=== PATIENT | female | born 1955 | race Caucasian/White ===

== ENCOUNTER → 2020-05-15 14:14 | Outpatient (CLI) | payer MEDICARE, BC, SELFPAY ==
--- NOTE | 2020-05-15 | DI.MRI.S_ITS ---
PROCEDURE: MR SHOULDER RT WO CON INDICATIONS: Impingement syndrome of right shoulder TECHNIQUE: Noncontrast oblique coronal T2 fast spin echo with fat saturation, oblique sagittal T1 spin echo and T2 fast spin echo with fat saturation, axial T1 spin echo and T2 fast spin echo with fat saturation through the shoulder. COMPARISON: None. FINDINGS: Image quality: Excellent. Rotator cuff: There is moderate grade bursal surface tearing of the mid supraspinatus tendon at the humeral insertion site, spanning roughly 8 mm anteroposterior. Low-grade partial-thickness intrasubstance tearing of the posterior supraspinatus tendon at the humeral insertion site. Moderate T2 signal elevation throughout the supraspinatus tendon at the humeral insertion site, indicating tendinopathy, without tear. There is a 9 mm ovoid well-circumscribed focus of high T2 signal intensity within the anterior infraspinatus tendon at the musculotendinous junction, which is indeterminate. Bones and bursae: No bone marrow contusions or fractures. There is moderate acromioclavicular joint degeneration. The acromion demonstrates conventional anatomy, without an os acromiale. A small amount of subacromial-subdeltoid or subcoracoid bursal fluid is present. Capsule and soft tissues: There is diffuse degenerative glenoid labral tearing. There is a moderate glenohumeral joint effusion. The long head of the biceps tendon demonstrates normal location and morphology. The rotator interval appears normal, without fibrosis. The coracohumeral ligament is normal in thickness. IMPRESSION: 1. Partial-thickness tearing of the supraspinatus tendon as above. No focal with rotator cuff tear. 2. Indeterminate region of high T2 signal intensity within the anterior infraspinatus tendon as described above. This finding may represent hydrated calcium and calcific tendinitis. Initial further assessment with plain films of the shoulder are recommended. 3. Diffuse degenerative glenoid labral tearing. 4. Acromioclavicular joint osteoarthritis. 5. Subacromial bursitis. Dictated by: Sherri Kingston M.D. on 05/15/2020 at 15:42 Approved by: Sherri Kingston M.D. on 05/15/2020 at 15:46
== END ==
PROVIDERS: PCP Family Medicine; Referring Provider Family Medicine; Visit Provider Orthopaedic Surgery
DX: M75.41 Impingement syndrome of right shoulder (principal); M75.111 Incomplete rotator cuff tear or rupture of right shoulder, not specified as traumatic; M19.011 Primary osteoarthritis, right shoulder; M75.51 Bursitis of right shoulder; S43.491A Other sprain of right shoulder joint, initial encounter
CPT/HCPCS: 73221

== ENCOUNTER → 2023-02-02 08:54 | Outpatient (CLI) | payer MEDICARE, BC, SELFPAY ==
[2023-02-02 09:49] LABS: Add Manual Diff / Slide Review NO; Basophils Absolute Auto 0 /uL (0-100); Eosinophils Absolute Auto 100 /uL (0-450); Eosinophils Percent Auto 1.9 % (2-4); Hematocrit 43.4 % (36-46); Lymphocytes Absolute Auto 1300 /uL (1100-4500); Lymphocytes Percent Auto 32.8 % (25-40); Mean Corpuscular HGB Conc 34.5 % (30-36); Mean Corpuscular Hemoglobin 31.3 PG (26-34); Mean Corpuscular Volume 90.8 fL (80-100); Monocytes Absolute Auto 300 /uL (0-900); Monocytes Percent Auto 7.3 % (3-14); Neutrophils Absolute Auto 2300 /uL (1500-7000); Platelet Count 275 X10^3/uL (150-400); Red Blood Cell Count 4.78 X10^6/uL (4.0-5.2); Red Cell Distribution Width 12.6 % (11.6-14.8)
[2023-02-02 10:09] LABS: Alanine Aminotransferase 20 IU/L (<35); Albumin 4.5 g/dL (3.5-5.0); Albumin Globulin Ratio 1.6 (1.0-2.8); Alkaline Phosphatase 70 U/L (38-126); Aspartate Aminotransferase 32 IU/L (14-36); BUN Creatinine Ratio 19.7 (6-22); Blood Urea Nitrogen 12 mg/dL (7-17); Carbon Dioxide 27 mmol/L (22-32); Chloride 98 mmol/L (98-107); Cholesterol 199 mg/dL (140-199); Estimated Glomerular Filt Rate > 60 mL/min (>60); Globulin 2.8 g/dL (1.7-4.1); Glucose 88 mg/dL (80-110); HDL Cholesterol 82 mg/dL (40-60); HEMOLYSIS < 15 (0-50); LDL Cholesterol Calculated 106 mg/dL (<100); Sodium 133 mmol/L (137-145); Total Protein 7.3 g/dL (6.3-8.2); Triglycerides 54 mg/dL (35-150)
[2023-02-02 10:40] LABS: Thyroid Stimulating Hormone 4.61 uIU/mL (0.47-4.68)
== END ==
PROVIDERS: PCP Family Medicine; Referring Provider Family Medicine; Visit Provider Family Medicine
DX: I10 Essential (primary) hypertension (principal); E03.9 Hypothyroidism, unspecified; Z13.6 Encounter for screening for cardiovascular disorders
CPT/HCPCS: 36415; 80053; 80061; 84443; 85025

== ENCOUNTER → 2023-03-04 11:01 | Outpatient (CLI) | payer MEDICARE, BC, SELFPAY ==
[2023-03-04 20:53] LABS: BUN Creatinine Ratio 28.8 (6-22); Blood Urea Nitrogen 19 mg/dL (7-17); Calcium 9.3 mg/dL (8.4-10.2); Carbon Dioxide 29 mmol/L (22-32); Chloride 96 mmol/L (98-107); Estimated Glomerular Filt Rate > 60 mL/min (>60); Glucose 84 mg/dL (80-110); HEMOLYSIS < 15 (0-50); Potassium 4.8 mmol/L (3.4-5.1); Sodium 132 mmol/L (137-145)
[2023-03-04 21:24] LABS: Thyroid Stimulating Hormone 1.83 uIU/mL (0.47-4.68)
== END ==
PROVIDERS: PCP Family Medicine; Visit Provider Family Medicine
DX: I10 Essential (primary) hypertension (principal); E87.1 Hypo-osmolality and hyponatremia; E03.9 Hypothyroidism, unspecified
CPT/HCPCS: 80048; 84443

== ENCOUNTER 2023-04-20 10:22 | Day surgery (SDC) | payer MEDICARE, BC, SELFPAY ==
[2023-04-20] VITALS (7 sets, daily range): BP systolic 93–133; BP diastolic 53–75; PULSE 50–61; RESP 13–24; TEMP 36.1–36.8; O2SAT 96–99; BMI 19.9
--- NOTE | 2023-04-20 | PATH_ITS ---
[facility] Accession Number: [id number] No. of containers..01 Tissue . 01 Material submitted: . colon - RANDOM COLON BIOPSY . 01 Diagnosis: Random Colon, Biopsy: Fragment of colonic mucosa with no significant diagnostic alterations. Additional fragment of colonic mucosa with histologic features consistent with hyperplastic polyp. No dysplasia or malignancy identified. [facility] 04/26/2023 1109 Local . 01 Electronically signed: . Amelia Spencer MD, Pathologist NPI- [id number] . 01 Gross description: . RANDOM COLON BIOPSY: Received in formalin are 2 fragment(s) of zaragoza, soft tissue measuring 0.3 x 0.3 x 0.3 cm to 0.4 x 0.4 x 0.3 cm submitted entirely in 1 cassette(s) /[facility]ASH 04/21/2023 2316 Local . 01 Pathologist provided ICD-10: D12.6 . 01 CPT . 095848 Specimen Comment: A courtesy copy of this report has been sent to [phone] Performed at: 01 [facility] [address] [place] [address], [place], [place] [id number] MD Vinicio Billingsley MD Phone: [phone]
[2023-04-20] MEDS: LACTATED RINGERS 1,000 ML 200 ML IV (11:05)
--- NOTE | 2023-04-20 11:09 | P.HP_ITS ---
History of Present Illness History of Present Illness Date Patient Seen: 04/20/23 Time Patient Seen: 11:09 Chief complaint: [facility] [place]ative: 67-year-old woman with chronic diarrhea here for diagnostic colonoscopy. no abdominal pain nausea vomiting blood per rectum. No personal or family history of intestinal malignancy. Previously normal colonoscopy approximately 3 years ago at outside hospital. [facility] Medical History Abnormal Pap smear of cervix (~1975) Ankle pain (~2005) Fibroids Hepatitis A (~1982) Hypertension (~2020) Hypothyroidism (~1999) Infection, Shigella (~1982) Osteoarthritis (~2015) Osteopenia (~2001) Rosacea (~2007) Surgical History Anesthesia History of breast biopsy History of cervical biopsy Intestinal adhesions (~1966) Ruptured appendix (~1963) Family History Mother Dementia Hypertension Hyperlipidemia Father History of heart disease Hyperlipidemia Hypertension Stroke Diabetes mellitus Brother History of heart disease Hyperlipidemia Hypertension Diabetes mellitus History of being obese Sister Hyperlipidemia Hypertension Sister Hyperlipidemia Hypertension History of hip surgery Grandfather Stroke History of heart disease Grandmother Stroke Grandfather Diabetes mellitus History of heart disease Hyperlipidemia Hypertension Grandmother Cancer Social History household members: spouse Smoking Status: Former smoker alcohol intake: never Meds Home Medications and Allergies Home Medications Medication Instructions Recorded Confirmed Type azelaic acid 15 % topical gel 1 applic topical BID 09/24/21 04/20/23 History fluticasone propionate 50 1 spray intranasal DAILY 09/24/21 04/20/23 History mcg/actuation nasal spray,suspension levothyroxine 50 mcg capsule 50 mcg PO DAILY 09/24/21 04/20/23 History metronidazole 1 % topical gel 1 applic topical DAILY 09/24/21 04/20/23 History (Metrogel) amlodipine 2.5 mg tablet 2.5 mg PO DAILY #90 tabs 03/30/23 04/20/23 Rx Allergies Allergy/AdvReac Type Severity Reaction Status Date / Time Penicillins Allergy Unknown Verified 04/20/23 10:41 Sulfa (Sulfonamide Allergy Unknown Verified 04/20/23 10:41 Antibiotics) ARB-Angiotensin Receptor AdvReac Intermediate Verified 04/20/23 10:41 Antagonist Exam Vital Signs (past 8 hours): - 04/20/23 10:47 Temperature 98.3 F Pulse Rate 58 L Respiratory Rate 19 Blood Pressure 133/75 Pulse Oximetry 99 Oxygen Delivery Method Room Air Oxygen Delivery Method Room Air Narrative Exam Narrative: General adult woman alert oriented no acute distress Abdomen soft nontender nondistended Assessment & Plan Assessment and plan (1) Diarrhea: Problem details: 67-year-old woman with chronic diarrhea here for diagnostic colonoscopy. Technical details were discussed. Risks, benefits, alternatives explained. Risks including but not limited to myocardial infarction, aspiration, bleeding, pain, missed lesion, incomplete examination, need for further radiographic studies, colonic perforation, and need for major abdominal surgery were discussed. All questions were answered to their satisfaction, and they are in agreement with this plan. Status: Acute
--- NOTE | 2023-04-20 11:44 | PM.OP.COLON ---
Operative Date/Time/Diagnoses Date of procedure: 04/20/23 Time of procedure: 11:44 Pre-op diagnosis: Diarrhea Post-op diagnosis: other (Diverticulosis) Procedure & Clinicians Study performed: Colonoscopy Same procedure as scheduled: Yes Indications: 67-year-old woman with chronic diarrhea and history of diverticulosis here for diagnostic colonoscopy Surgeon: Santos Bonilla Procedure Notes Procedure in detail: The history and physical was performed/updated and the patient is ASA class is 2. The procedure was discussed in detail with the patient. Potential risks complications including infection, bleeding, missed diagnosis, perforation, need for surgery, and were explained. Their questions were answered and informed consent was obtained. Patient was brought to the procedure room and placed standard monitoring equipment. The patient's vital signs were monitored continuously throughout the entire procedure. Prior to starting time-out was performed. The patient was placed in the left lateral recumbent position. Procedural sedation was administered by anesthesia. Examination began with a thorough inspection of the perianal area there was no evidence of fissures, fistulae, external hemorrhoids or cutaneous malignancy. The colonoscopy scope was then placed into the anal canal and was advanced to the cecum, which was identified by the ileocecal valve, the appendiceal orifice and the confluence of the taenia. The scope was then slowly withdrawn examining colon thoroughly in all directions, irrigating it of any residual stool. Sigmoid colon was notable for extensive diverticulosis. No masses or polyps were identified within the colon. Random colonic biopsies of mucosa was performed with forceps to evaluate for microscopic disease. The patient tolerated the procedure well. They will be discharged once criteria are met. The prep was of good/excellent quality. The withdrawl time was 7 minutes. Specimen(s): other (Random colonic biopsy) Impression: Diverticulosis Post-procedure Recommendations: Colonoscopy in 10 years and High fiber diet Disposition: same day surgery
== END 2023-04-20 12:22 | disposition home or self-care (01) ==
PROVIDERS: PCP Family Medicine; Referring Provider Surgery; Visit Provider Surgery
PROC: 0DJD8ZZ Inspection of Lower Intestinal Tract, Via Natural or Artificial Opening Endoscopic (ICD-10-PCS; CPT 45378; principal; 2023-04-20 11:30)
DX: K57.30 Diverticulosis of large intestine without perforation or abscess without bleeding (principal); R19.7 Diarrhea, unspecified
CPT/HCPCS: 45380; J2704

== ENCOUNTER → 2023-07-15 13:41 | Outpatient (CLI) | payer MEDICARE, BC, SELFPAY ==
[2023-07-15 20:54] LABS: BUN Creatinine Ratio 24.6 (6-22); Blood Urea Nitrogen 16 mg/dL (7-17); Calcium 9.3 mg/dL (8.4-10.2); Carbon Dioxide 29 mmol/L (22-32); Chloride 97 mmol/L (98-107); Estimated Glomerular Filt Rate > 60 mL/min (>60); Glucose 93 mg/dL (80-110); HEMOLYSIS < 15 (0-50); Potassium 4.5 mmol/L (3.4-5.1); Sodium 131 mmol/L (137-145)
== END ==
PROVIDERS: PCP Family Medicine; Visit Provider Family Medicine
DX: E87.1 Hypo-osmolality and hyponatremia (principal); I10 Essential (primary) hypertension
CPT/HCPCS: 80048

== ENCOUNTER → 2023-08-12 10:57 | Outpatient (CLI) | payer MEDICARE, BC, SELFPAY ==
[2023-08-12 20:09] LABS: Sodium Urine Random 28 mmol/L (30-90)
[2023-08-16 18:11] LABS: Osmolality Urine 228 mOsmol/kg (.)
== END ==
PROVIDERS: PCP Family Medicine; Visit Provider Family Medicine
DX: E87.1 Hypo-osmolality and hyponatremia (principal)
CPT/HCPCS: 83935; 84300

== ENCOUNTER → 2023-11-09 11:56 | Outpatient (CLI) | payer MEDICARE, BC, SELFPAY ==
[2023-11-09 20:24] LABS: BUN Creatinine Ratio 20.3 (6-22); Blood Urea Nitrogen 12 mg/dL (7-17); Calcium 9.6 mg/dL (8.4-10.2); Carbon Dioxide 28 mmol/L (22-32); Chloride 97 mmol/L (98-107); Estimated Glomerular Filt Rate > 60 mL/min (>60); Glucose 120 mg/dL (80-110); HEMOLYSIS < 15 (0-50); Potassium 4.2 mmol/L (3.4-5.1); Sodium 131 mmol/L (137-145)
[2023-11-09 20:37] LABS: Sodium Urine Random 44 mmol/L (30-90)
[2023-11-11 15:11] LABS: Osmolality, Serum 279 mOsmol/kg (280-301)
[2023-11-11 16:07] LABS: Osmolality Urine 204 mOsmol/kg (.)
== END ==
PROVIDERS: PCP Family Medicine; Visit Provider Family Medicine
DX: E87.1 Hypo-osmolality and hyponatremia (principal)
CPT/HCPCS: 80048; 83930; 83935; 84300

== ENCOUNTER → 2024-10-09 09:32 | Outpatient (CLI) | payer MEDICARE, BC, SELFPAY ==
[2024-10-09 19:18] LABS: Add Manual Diff / Slide Review NO; Basophils Absolute Auto 0 /uL (0-100); Basophils Percent Auto 1.1 % (0-2); Eosinophils Absolute Auto 200 /uL (0-450); Hematocrit 40.6 % (36-46); Hemoglobin 13.8 g/dL (12.0-16.0); Lymphocytes Absolute Auto 1200 /uL (1100-4500); Lymphocytes Percent Auto 36.6 % (25-40); Mean Corpuscular HGB Conc 33.9 % (30-36); Mean Corpuscular Volume 88.7 fL (80-100); Monocytes Absolute Auto 300 /uL (0-900); Monocytes Percent Auto 8.2 % (3-14); Neutrophils Absolute Auto 1600 /uL (1500-7000); Neutrophils Percent Auto 49.1 % (50-75); Platelet Count 247 X10^3/uL (150-400); Red Blood Cell Count 4.58 X10^6/uL (4.0-5.2); White Blood Cell Count 3.3 X10^3/uL (4.5-11.0)
[2024-10-09 19:33] LABS: Alanine Aminotransferase 23 IU/L (<35); Albumin 4.1 g/dL (3.5-5.0); Albumin Globulin Ratio 1.7 (1.0-2.8); Alkaline Phosphatase 93 U/L (38-126); Aspartate Aminotransferase 32 IU/L (14-36); BUN Creatinine Ratio 24.3 (6-22); Blood Urea Nitrogen 18 mg/dL (7-17); Calcium 9.6 mg/dL (8.4-10.2); Carbon Dioxide 27 mmol/L (22-32); Chloride 100 mmol/L (98-107); Cholesterol 196 mg/dL (140-199); Estimated Glomerular Filt Rate > 60 mL/min (>60); Globulin 2.4 g/dL (1.7-4.1); Glucose 87 mg/dL (80-110); HEMOLYSIS < 15 (0-50); Potassium 4.4 mmol/L (3.4-5.1); Sodium 130 mmol/L (137-145); Total Protein 6.5 g/dL (6.3-8.2); Triglycerides 47 mg/dL (35-150)
[2024-10-09 19:44] LABS: HDL Cholesterol 118 mg/dL (40-60); LDL Cholesterol Calculated 69 mg/dL (<100)
[2024-10-09 19:48] LABS: Vitamin D 25 Hydroxy (D3) 29.6 ng/mL (30.0-100.0)
[2024-10-09 20:02] LABS: Thyroid Stimulating Hormone 1.69 uIU/mL (0.47-4.68)
== END ==
PROVIDERS: PCP Family Medicine; Visit Provider Family Medicine
DX: E87.1 Hypo-osmolality and hyponatremia (principal); M81.0 Age-related osteoporosis without current pathological fracture; E03.9 Hypothyroidism, unspecified; I10 Essential (primary) hypertension
CPT/HCPCS: 80053; 80061; 82306; 84443; 85025

== ENCOUNTER → 2025-08-08 11:04 | Outpatient (CLI) | payer MEDICARE, BC, SELFPAY ==
--- NOTE | 2025-08-08 11:08 | DI.RAD.S_ITS ---
PROCEDURE: XR DEXA AXIAL SKELETON INDICATIONS: POST MENOPAUSAL STATE COMPARISON: None. FINDINGS: Lumbar Spine: Bone mineral density 0.732 g/cm2, T score -2.9. Left Femoral Neck: Bone mineral density 0.613 g/cm2, T score -2.1. Left Hip: Bone mineral density 0.667 g/cm2, T score -2.3. Fracture Risk Calculation (when applicable): 10-year fracture risk of a major osteoporotic fracture 11 percent and of a hip fracture 2.4 percent. (T score greater or equal to -1.0 to: NORMAL) (T score from -1.1 to -2.4: OSTEOPENIA) (T score less than or equal to -2.5: OSTEOPOROSIS) IMPRESSION: Osteopenia--- recommend repeat DEXA in 2-3 years for reassessment. Follow-up guidelines as follows: Osteoporosis: Consider a repeat DEXA and Vertebral Fracture Assessment (VFA) exam in 2 years or sooner if medically necessary, to reassess this patient's status. Osteopenia: Consider a repeat DEXA in 2-3 years to reassess this patient's status, or if there is a new clinical indication. Normal: Consider a repeat DEXA in 5 years or sooner, or if there is a new clinical indication. All treatment decisions require clinical judgment and consideration of individual patient factors, including patient preferences, comorbidities, previous drug use, risk factors not captured in the FRAX model (e.g., frailty, falls, vitamin D deficiency, increased bone turnover, interval significant decline in bone density ) and possible under- or over-estimation of fracture risk by FRAX. In addition, the NOF Guide recommends that FDA-approved medical therapies be considered in postmenopausal women and men age >= 50 years with a: * Hip or vertebral (clinical or morphometric) fracture * T-score of <=-2.5 at the spine or hip * Ten-year fracture probability by FRAX of >= 3% for hip fracture or >=20% for major osteoporotic fracture. Dictated by: Dhruv Mead M.D. on 08/08/2025 at 18:53 Approved by: Dhruv Mead M.D. on 08/08/2025 at 18:55
== END ==
LOC: RAD 11:06
PROVIDERS: PCP Family Medicine; Referring Provider Family Medicine; Visit Provider Family Medicine
DX: M81.0 Age-related osteoporosis without current pathological fracture (principal)
CPT/HCPCS: 77080

== ENCOUNTER → 2025-08-21 13:01 | Outpatient (CLI) | payer MEDICARE, BC, SELFPAY ==
[2025-08-21 19:12] LABS: Alanine Aminotransferase 15 IU/L (<35); Albumin 4.4 g/dL (3.5-5.0); Albumin Globulin Ratio 2.0 (1.0-2.8); Alkaline Phosphatase 108 U/L (38-126); Blood Urea Nitrogen 18 mg/dL (7-17); Calcium 9.3 mg/dL (8.4-10.2); Carbon Dioxide 26 mmol/L (22-32); Chloride 101 mmol/L (98-107); Estimated Glomerular Filt Rate > 60 mL/min (>60); Globulin 2.2 g/dL (1.7-4.1); Glucose 125 mg/dL (70-99); HEMOLYSIS 20 (0-50); Potassium 4.0 mmol/L (3.4-5.1); Sodium 134 mmol/L (137-145); Total Protein 6.6 g/dL (6.3-8.2)
[2025-08-21 19:17] LABS: Add Manual Diff / Slide Review NO; Hematocrit 39.6 % (36-46); Hemoglobin 13.7 g/dL (12.0-16.0); Lymphocytes Absolute Auto 1300 /uL (1100-4500); Mean Corpuscular HGB Conc 34.5 % (30-36); Mean Corpuscular Hemoglobin 31.8 PG (26-34); Mean Corpuscular Volume 92.2 fL (80-100); Platelet Count 250 X10^3/uL (150-400)
[2025-08-21 19:23] LABS: Vitamin D 25 Hydroxy (D3) 27.9 ng/mL (30.0-100.0)
[2025-08-21 19:38] LABS: Thyroid Stimulating Hormone 1.43 uIU/mL (0.47-4.68)
== END ==
PROVIDERS: PCP Family Medicine; Visit Provider Family Medicine
DX: I10 Essential (primary) hypertension (principal); M81.0 Age-related osteoporosis without current pathological fracture; E87.1 Hypo-osmolality and hyponatremia; E03.9 Hypothyroidism, unspecified
CPT/HCPCS: 80053; 82306; 84443; 85025